=== PATIENT | female | born 1990 | race Caucasian/White ===

== ENCOUNTER → 2022-08-16 18:31 | Outpatient (CLI) | payer OTHER, SELFPAY ==
--- NOTE | 2022-08-16 18:35 | DI.MRI.S_ITS ---
PROCEDURE: MR HEAD/BRAIN WO CON INDICATIONS: HEADACHE/BRAIN/CLERK CHECKER NEOPLASM,STAGING TECHNIQUE: Noncontrast axial T1 spin echo, axial T2 fast spin echo, sagittal and axial FLAIR, coronal T2 fast spin echo, axial gradient echo, axial diffusion and ADC through the brain. COMPARISON: [facility], CT, CT HEAD WITHOUT CONTRAST, 05/04/2018, 22:52. FINDINGS: Image quality: Excellent. CSF Spaces: Basal cisterns are patent. No extra-axial fluid collections. Ventricles are normal in size and shape. Brain: No intracranial masses or hemorrhage. Park/white matter interface is normal. Brainstem appears normal. Diffusion-weighted images demonstrate no acute ischemic insult. No chronic ischemic insults. Normal intravascular flow voids are present. Skull and face: Calvarium has normal marrow signal. Orbits appear normal. Sinuses: Sinuses and mastoids are clear. IMPRESSION: To the limits of this noncontrast brain MRI, no findings of masses or mass effect can be seen. No significant brain MRI abnormality is seen. No brain edema is seen. A cause of headache is not seen. Dictated by: Reece Markham M.D. on 08/17/2022 at 8:09 Approved by: Reece Markham M.D. on 08/17/2022 at 8:12
== END ==
PROVIDERS: PCP Family Medicine; Referring Provider Family Medicine; Visit Provider Family Medicine
DX: R51.9 Headache, unspecified (principal)
CPT/HCPCS: 70551